=== PATIENT | female | born 1955 | race Caucasian/White ===

== ENCOUNTER → 2022-11-06 | Day surgery (SDC) | payer OTHER ==
--- NOTE | 2022-11-06 14:14 | RAD REPORT ---
EXAM DESCRIPTION: US - BREAST/AXILLA, LIMITED - 11/06/2022 10:30 am CLINICAL HISTORY: R92.8 COMPARISON: BREAST/AXILLA, COMPLETE dated 10/24/2022; 3D SCR PATY BILAT W/CAD dated 10/14/2022 FINDINGS: Full right breast sonography was performed including all 4 quadrants and the retroareolar region. The patient initially presented for ultrasound-guided core biopsies of 3 lesions, as documented on ul trasound of 10/24/2022. One of the lesions may correspond to the mammographic nodular asymmetry, seen on the most recent mammogram of 10/14/2022. Upon additional meticulous scanning today performed by the technologist and myself, no discrete samantha s were visualized. The previously documented abnormalities, were seen to correspond to areas of ligam entous and ductal prominence today, in the central right breast, at 21:38 o'clock, approximately 3 ce ntimeter from the nipple, and at 12 o'clock 4 centimeter from the nipple, with corresponding mild bety ear but nonfocal shadowing. The abnormalities at 12 and 3 o'clock position show associated small calc ifications. No discrete masses or suspicious intraductal lesions. The findings were discussed with the patient. A decision was made to forego the biopsies at this time , with imaging follow-up recommendations as below. All of the patient's questions were answered. IMPRESSION: No discrete masses to warrant a biopsy in the right breast. Three small regions of ligamentous and ductal prominence, demonstrating mild linear and nonfocal shad owing. One of these may correspond to the nodular asymmetry seen at 12 o'clock position on the most r ecent mammogram. Recommendation: Short-term interval sonographic and mammographic follow-up is recommended in 6 months to ensure stability of these findings. BI-RADS: 3, probably benign findings.
== END ==
LOC: DS 09:08
PROVIDERS: ATTEND Clinical Nurse Specialist Women's Health
DX: R92.8 Other abnormal and inconclusive findings on diagnostic imaging of breast (principal); Z53.8 Procedure and treatment not carried out for other reasons
CPT/HCPCS: 76642